=== PATIENT | female | born 1995 | race Hispanic/Latino ===

== ENCOUNTER 2017-11-27 00:48 | Emergency (ER) | payer SELFPAY ==
[~2017-11-27] VITALS: Ht 157.5 cm; Wt 58.1 kg
== END 2017-11-27 01:45 | disposition left against medical advice (07) ==
LOC: FSED 00:48
DX: R30.0 Dysuria (principal)
CPT/HCPCS: 81025

== ENCOUNTER 2020-03-31 15:50 | Emergency (ER) | payer OTHER ==
[~2020-03-31] VITALS: Ht 157.5 cm; Wt 58.1 kg
[2020-03-31] MEDS ORDERED: KETOROLAC TROMETHAMINE 60 MG/2 ML VIAL IM ONE (16:30)
[2020-03-31] MEDS ORDERED: KETOROLAC TROMETHAMINE 60 MG/2 ML VIAL ONE (17:07)
== END 2020-03-31 18:07 | disposition home or self-care (01) ==
LOC: FSED 16:29
DX: S50.02XA Contusion of left elbow, initial encounter (principal); S13.4XXA Sprain of ligaments of cervical spine, initial encounter; W01.0XXA Fall on same level from slipping, tripping and stumbling without subsequent striking against object, initial encounter; Y93.01 Activity, walking, marching and hiking; Y92.008 Other place in unspecified non-institutional (private) residence as the place of occurrence of the external cause
CPT/HCPCS: 72040; 73080; 99283; J1885

== ENCOUNTER 2020-08-16 20:20 | Emergency (ER) | payer OTHER ==
[2020-08-16] MEDS ORDERED: BACITRACIN ZINC 0.9GM TP ONE (23:33)
[2020-08-16] MEDS ORDERED: CEPHALEXIN500 MG PO (23:39)
[2020-08-16] MEDS ORDERED: IBUPROFEN400 MG PO (23:40)
[2020-08-17 00:14] VITALS: BP 138/92
== END 2020-08-17 00:13 | disposition home or self-care (01) ==
LOC: FSED 21:15
DX: S02.40DA Maxillary fracture, left side, initial encounter for closed fracture (principal); S62.524A Nondisplaced fracture of distal phalanx of right thumb, initial encounter for closed fracture; Y04.8XXA Assault by other bodily force, initial encounter; Y92.008 Other place in unspecified non-institutional (private) residence as the place of occurrence of the external cause
CPT/HCPCS: 70486; 81003; 81025; 99283

== ENCOUNTER 2020-10-26 11:42 | Emergency (ER) | payer OTHER ==
[~2020-10-26] VITALS: Ht 157.5 cm; Wt 59.0 kg
[~2020-10-26 11:42] MED LIST: CEPHALEXIN500 MG PO; IBUPROFEN400 MG PO
== END 2020-10-26 12:07 | disposition home or self-care (01) ==
LOC: FSED 12:00
DX: R23.3 Spontaneous ecchymoses (principal)
CPT/HCPCS: 99282

== ENCOUNTER 2022-10-26 09:16 | Emergency (ER) | payer OTHER ==
[~2022-10-26] VITALS: Ht 157.5 cm; Wt 66.0 kg
[2022-10-26] MEDS ORDERED: VENTOLIN HFA18 GM INH (09:34)
[2022-10-26] MEDS ORDERED: AZITHROMYCIN250 MG PO (09:34)
== END 2022-10-26 09:46 | disposition home or self-care (01) ==
LOC: FSED 09:23
DX: R05.9 Cough, unspecified (principal); J02.9 Acute pharyngitis, unspecified
CPT/HCPCS: 99283

== ENCOUNTER 2022-11-13 14:36 | Emergency (ER) | payer OTHER ==
[~2022-11-13] VITALS: Ht 157.5 cm; Wt 67.6 kg
[~2022-11-13 14:36] MED LIST changes: +AZITHROMYCIN250 MG PO; +VENTOLIN HFA18 GM INH
[2022-11-13] MEDS ORDERED: GUAIFENESIN-DM 15 ML PO (15:11)
[2022-11-13] MEDS ORDERED: OMEPRAZOLE40 MG PO (15:11)
[2022-11-13] MEDS ORDERED: LORATADINE10 MG PO (15:11)
[2022-11-13] MEDS ORDERED: CEFDINIR300 MG PO (15:11)
[2022-11-13 15:42] VITALS: O2SAT 99
== END 2022-11-13 15:42 | disposition home or self-care (01) ==
LOC: FSED 15:02
DX: R05.9 Cough, unspecified (principal); K21.9 Gastro-esophageal reflux disease without esophagitis
CPT/HCPCS: 71046; 99283

== ENCOUNTER 2023-07-18 12:31 | Emergency (ER) | payer MEDICARE ==
[~2023-07-18] VITALS: Ht 157.5 cm; Wt 68.0 kg
[~2023-07-18 12:31] MED LIST changes: +AMOXICILLIN500 MG PO; +CEFDINIR300 MG PO; +FAMOTIDINE20 MG PO; +GUAIFENESIN-DM 15 ML PO; +LORATADINE10 MG PO; +OMEPRAZOLE40 MG PO; +PENICILLIN V P500 MG PO; +PREDNISONE20 MG PO
[2023-07-18 12:42] VITALS: O2SAT 99
[2023-07-18] MEDS ORDERED: IBUPROFEN600 MG PO (12:56)
== END 2023-07-18 13:00 | disposition home or self-care (01) ==
LOC: FSED 12:38
DX: J02.9 Acute pharyngitis, unspecified (principal); Z11.52 Encounter for screening for COVID-19
CPT/HCPCS: 0223U; 81003; 81025; 83518; 87400; 99282

== ENCOUNTER 2024-10-27 21:58 | Emergency (ER) | payer OTHER ==
[~2024-10-27] VITALS: Ht 157.5 cm; Wt 64.4 kg
[~2024-10-27 21:58] MED LIST changes: +IBUPROFEN600 MG PO
[2024-10-27 22:00] VITALS: PULSE 79; RESP 18; TEMP 98.3
[2024-10-27 22:19] VITALS: BP 119/82; PULSE 79; RESP 18; TEMP 98.3; O2SAT 99
== END 2024-10-27 22:21 | disposition home or self-care (01) ==
LOC: FSED 22:00
DX: M25.531 Pain in right wrist (principal); M65.88 Other synovitis and tenosynovitis, other site
CPT/HCPCS: 99283